=== PATIENT | male | born 1975 | race African-American/Black ===

== ENCOUNTER → 2020-06-21 | Outpatient (CLI) | payer SELFPAY ==
--- NOTE | 2020-06-21 17:14 | Diagnostic Imaging Report ---
INDICATION: Knee pain. FINDINGS: There are small patellar osteophytes. There appears to be some minimal joint space narrowing within the medial compartment of the knee. No evidence of a suspicious bone lesion or evidence of an acute fracture but there does appear to be a large suprapatellar joint effusion. IMPRESSION: Large suprapatellar joint effusion without evidence of malalignment or acute fracture. There are only mild patellofemoral and medial compartment arthritic changes. This raises the possibility of internal derangement of the knee. This could be further assessed with MRI if clinically appropriate. Dictated by: Dictated on workstation # [id number]
== END ==
LOC: RAD 15:19
PROVIDERS: ATTEND Nurse Practitioner Family
DX: M17.12 Unilateral primary osteoarthritis, left knee (principal)
CPT/HCPCS: 73562

== ENCOUNTER → 2020-07-17 | Outpatient (CLI) | payer OTHER ==
--- NOTE | 2020-07-17 11:44 | Diagnostic Imaging Report ---
MRI LT LOWER EXT JOINT W/O TECHNIQUE: Multiplanar, multisequence MR imaging of the left knee was performed without contrast. COMPARISON: None available. INDICATION: Left knee pain. No acute injury. FINDINGS: MENISCI Medial meniscus: Nondisplaced horizontal cleavage tear contacting the superior surface of the posterior horn of the medial meniscus. Truncation of the free edge of the body is present as well. Lateral meniscus: Normal. LIGAMENTS ACL: Intact. PCL: Intact. MCL: Intact. LCL: The lateral collateral ligamentous complex is intact. EXTENSOR MECHANISM The extensor mechanism is intact. CARTILAGE Medial compartment: Full-thickness chondral fissuring in the posterior weightbearing aspect of the medial femoral condyle extends over a region of approximately 2 x 6 mm and is adjacent to the meniscal tear. There is small amount of subchondral bone marrow edema in the lateral femoral condyle. Lateral compartment: The lateral compartment articular cartilage is preserved without high-grade chondromalacia. Patellofemoral compartment: Partial thickness chondral fissuring in the lateral patellar facet involves approximately 50% of thickness. BONE No fracture, stress fracture or osteonecrosis. SOFT TISSUE Large knee joint effusion. Small ruptured Nelson's cyst. IMPRESSION: 1. Large knee joint effusion is out of proportion to the degree of mild interval derangement. This raises the possibility of inflammatory process, such as gout. Arthrocentesis is suggested for fluid analysis. 2. Nondisplaced horizontal cleavage tear in the posterior horn of the medial meniscus. 3. A small focus of full-thickness chondral fissuring is present in the posterior aspect of the medial compartment adjacent to the meniscal tear. Dictated by: Dictated on workstation # [id number]
== END ==
LOC: RAD 09:21
PROVIDERS: ATTEND Physician Assistant
DX: S83.242A Other tear of medial meniscus, current injury, left knee, initial encounter (principal); X58.XXXA Exposure to other specified factors, initial encounter
CPT/HCPCS: 73721